=== PATIENT | male | born 1950 | race Caucasian/White ===

== ENCOUNTER 2020-03-08 19:15 | Emergency (ER) | payer MEDICARE ==
[~2020-03-08] VITALS: Ht 175.3 cm; Wt 95.5 kg
[2020-03-08] MEDS ORDERED: diphenhydrAMINE 50MG/ML VIAL (J1200) IV ONE (19:30)
[2020-03-08] MEDS ORDERED: FAMOTIDINE INJ 20MG/2ML VIAL (S0028 PER 1) IVP ONE (19:30)
[2020-03-08] MEDS ORDERED: dexameTHASONE 20MG/5ML VIAL (J1100 PER 1MG) IV ONE (19:30)
[2020-03-08 19:57] LABS: BASO % 0.3 % (0.0-1.0); EOS # 0.2 10^3/uL (0.0-0.5); EOS % 3.6 % (0.0-3.0); HEMATOCRIT 43.7 % (42.0-52.0); HEMOGLOBIN 14.8 g/dl (13.5-17.5); LYMPH # 2.5 10^3/uL (1.5-5.0); LYMPH % 37.6 % (24.0-44.0); MEAN CORPUSCULAR HEMOGLOBIN 30.6 pg (27.0-33.0); MEAN CORPUSCULAR HGB CONC 33.9 g/dl (32.0-36.5); MEAN CORPUSCULAR VOLUME 90.3 fl (80.0-96.0); MONO # 0.4 10^3/uL (0.0-0.8); MONO % 6.6 % (0.0-5.0); NEUTROPHILS # 3.4 10^3/uL (1.5-8.5); NEUTROPHILS % 51.6 % (36.0-66.0); PLATELET COUNT, AUTOMATED 193 10^3/uL (150-450); RED BLOOD COUNT 4.84 10^6/uL (4.30-6.10); WHITE BLOOD COUNT 6.7 10^3/uL (4.0-10.0)
[2020-03-08] MEDS ORDERED: LANTINJ4 SC (20:13)
[2020-03-08] MEDS ORDERED: PANT20TA6 PO (20:13)
[2020-03-08] MEDS ORDERED: ATOR1TAB19 PO (20:13)
[2020-03-08] MEDS ORDERED: ACTO15TA19 PO (20:13)
[2020-03-08] MEDS ORDERED: ASPI81TA86 PO (20:13)
[2020-03-08] MEDS ORDERED: LISI-538 PO (20:15)
[2020-03-08] MEDS ORDERED: METF750T36 PO (20:15)
[2020-03-08 20:26] LABS: BLOOD UREA NITROGEN 18 MG/DL (7-18); CALCIUM LEVEL 8.9 MG/DL (8.8-10.2); CARBON DIOXIDE LEVEL 27 MEQ/L (21-32); CHLORIDE LEVEL 107 MEQ/L (98-107); CREATININE FOR GFR 1.15 MG/DL (0.70-1.30); GLOMERULAR FILTRATION RATE > 60.0 (>49); GLUCOSE, FASTING 207 MG/DL (70-100); POTASSIUM SERUM 5.2 MEQ/L (3.5-5.1); SODIUM LEVEL 138 MEQ/L (136-145)
[2020-03-08] MEDS ORDERED: PRED20TA PO (23:46)
[2020-03-09 00:32] VITALS: BP 139/71
== END 2020-03-09 00:30 | disposition home or self-care (01) ==
LOC: M ED 19:15
DX: T63.441A Toxic effect of venom of bees, accidental (unintentional), initial encounter (principal); Y92.9 Unspecified place or not applicable; Y93.9 Activity, unspecified; E11.9 Type 2 diabetes mellitus without complications; M17.9 Osteoarthritis of knee, unspecified; Z79.82 Long term (current) use of aspirin; Z79.4 Long term (current) use of insulin; Z79.899 Other long term (current) drug therapy
CPT/HCPCS: 80048; 85025; 93041; 94760; 96374; 96375; 99284; J1100; J1200